=== PATIENT | female | born 1995 ===

== ENCOUNTER 2021-11-02 09:15 | Outpatient (RCR) | payer OTHER, SELFPAY ==
[2021-10-14 10:53] VITALS: BMI 30.1
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
--- NOTE | 2021-10-14 14:56 | PC.NURSE ---
Emailed patient a copy their safety plan.
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
--- NOTE | 2021-10-18 08:23 | PC.NURSE ---
Case opened in treatment team
--- NOTE | 2021-10-18 14:56 | P.PNPSP_ITS ---
Subjective Subjective Date of Service: 10/18/21 Reason For Visit: recurrent depressive d/o,ROSSI Interim History: Describes mood as ?doing okay ?. Finding groups helpful. No SI/HI/SIB, no safety concerns. Continues with some dysphoric, anxious symptoms. Feels current medication regimen is adequate, not interested in medication changes at this time. Medication Compliance: Yes Side effects from medications: No Attending Groups: Yes Review of Systems Acute medical concerns: No Medical Review of Systems: unchanged Review of Systems Review of Systems Yes all other systems are reviewed and are negative Constitutional: Reports no additional constitutional complaints Mental Status Exam Mental Status Exam Narrative: NAD. No perceptual disturbances noted, no tics or tremors, no SI/HI/SIB reported. Patient Appearance: Well Grooomed and Appropriate Patient Orientation: Person, Place, Time and Situation Level of Consciousness: Appropriate Patient Behavior: Appropriate and Poor Eye Contact (closed eyes at times, or looking down) Mood Description: Appropriate, Depressed and Anxious Affect Description: Depressed and Anxious Patient Cognition Impaired: No Ability to Follow Directions: Good Speech Pattern: Clear Memory Description: Intact Hallucinations: None Delusions: Not Present Thought Process: Intact Thought Content: positive for Intact Depressive Symptoms: Increased Anxiety, Difficulty Sleeping, Loss of Int. in Activity, Feelings of Guilt, Unhappiness and Increased Fatigue Judgement: Fair Diagnostics Vital Signs (24Hr): BMI result Body Mass Index 30.1 Assessment & Plan Assessment & Plan (1) Major depressive disorder, recurrent, moderate: Status: Acute Code(s): F33.1 - Major depressive disorder, recurrent, moderate Assessment and Plan: Describes mood as ?doing okay ?. Finding groups helpful. States that they are ?learning a lot ?from them. No SI/HI/SIB reported, no safety concerns. Reports that they continue with some dysphoric, anxious symptoms. However, they do not feel any symptoms warrant further medication at this time. They want to continue learning new healthy coping skills from groups, and having opportunity to practice. (2) Generalized anxiety disorder: Status: Acute Code(s): F41.1 - Generalized anxiety disorder Plan 1. Continue with current [facility] plan of care. 2. Continue with current medication regimen as prescribed by outpatient provider. 3. Follow-up as per protocol. Patient educated on: diagnosis, medication risk/benefits and therapeutic strategies Informed Consent: understands Reason for contiued partial hosp. stay Substantial Risk for: harm to self, inability to function, rapid decompensation and med/psych decompensation Certification I certify that partial hospital treatment is medically necessary due to the symptoms and problems resulting from the patient's mental illness and the failure to treat the patient at the partial hospital level of care would likely result in the patient requiring inpatient psychiatric care which could not be prevented at a less intensive level of care. I spent minutes with the patient and/or on the patient floor today, greater than?50% of which was spent counseling/coordinating care. Discharge Plan Discharge Attending provider: Brayan Jesus Medications: No Action sertraline 100 mg Tablet 100 mg PO DAILY 0RF Rx Instructions: Take with 50 mg tab. lorazepam 0.5 mg Tablet 0.5 mg PO BEDTIME PRN (Reason: Sleep) 0RF Label Comments: Last took about a week ago. hydroxyzine HCl 10 mg Tablet 10 mg PO DAILY PRN (Reason: Anxiety) 0RF sertraline 50 mg Tablet 50 mg PO DAILY 0RF Telehealth Telehealth Location of provider rendering services: practice address Location of patient: address on file Patient Identification confirmed using: Name, : Yes Telehealth method: video Patient verbally consented to treatment: Yes Patient verbally consented to billing insurance company: Yes Patient informed of any privacy concerns related to visit: Yes Minutes spent on Phone/Video with Pt.: 15
--- NOTE | 2021-10-26 13:11 | HO.PHPPROGNO ---
Subjective Subjective Date of Service: 10/26/21 Reason For Visit: recurrent depressive d/o,ROSSI Medical Problems Affecting Mental Status: No Interim History: Describes mood as ?good?. Some depressive symptoms, although improving. No concerns with medications. No SI/HI reported, no safety concerns. Finding groups helpful. Medication Compliance: Yes Side effects from medications: No Attending Groups: Yes Review of Systems Acute medical concerns: No Medical Review of Systems: unchanged Review of Systems Review of Systems Yes all other systems are reviewed and are negative Constitutional: Reports no additional constitutional complaints Mental Status Exam Mental Status Exam Narrative: NAD. no SI/HI/SIB, no safety concerns at this time. Patient Appearance: Well Grooomed and Appropriate Patient Orientation: Person, Place, Time and Situation Level of Consciousness: Appropriate Patient Behavior: Appropriate and Poor Eye Contact (closed eyes at times, or looking down (related to autism)) Mood Description: Appropriate and Depressed Affect Description: Appropriate and Depressed (Appears improving.) Patient Cognition Impaired: No Ability to Follow Directions: Good Speech Pattern: Clear Memory Description: Intact Hallucinations: None Delusions: Not Present Thought Process: Intact Thought Content: positive for Intact Depressive Symptoms: Increased Anxiety, Loss of Int. in Activity, Feelings of Guilt and Unhappiness Judgement: Fair Diagnostics Vital Signs (24Hr): BMI result Body Mass Index 30.1 Assessment & Plan Assessment & Plan (1) Major depressive disorder, recurrent, moderate: Status: Acute Code(s): F33.1 - Major depressive disorder, recurrent, moderate Assessment and Plan: Describes mood as ?good?. Some depressive symptoms, although improving. States they find current medication regimen working. States they would like to eventually lower dose of sertraline, but understands that they would need to be stable for some time prior to doing this. No SI/HI reported, no safety concerns. Finding groups helpful. (2) Generalized anxiety disorder: Status: Acute Code(s): F41.1 - Generalized anxiety disorder Assessment and Plan: Reports groups are beneficial in learning and practicing new coping skills to help manage symptoms. Plan 1. Continue with current [facility] plan of care. 2. Continue current medication regimen as prescribed by outpatient provider. 3. Follow-up as per protocol. Patient educated on: diagnosis, medication risk/benefits and therapeutic strategies Informed Consent: understands Reason for contiued partial hosp. stay Substantial Risk for: harm to self, inability to function, rapid decompensation and med/psych decompensation Certification I certify that partial hospital treatment is medically necessary due to the symptoms and problems resulting from the patient's mental illness and the failure to treat the patient at the partial hospital level of care would likely result in the patient requiring inpatient psychiatric care which could not be prevented at a less intensive level of care. I spent minutes with the patient and/or on the patient floor today, greater than?50% of which was spent counseling/coordinating care. Discharge Plan Discharge Attending provider: Brayan Jesus Medications: No Action sertraline 100 mg Tablet 100 mg PO DAILY Rx Instructions: Take with 50 mg tab. lorazepam 0.5 mg Tablet 0.5 mg PO BEDTIME PRN (Reason: Sleep) Label Comments: Last took about a week ago. hydroxyzine HCl 10 mg Tablet 10 mg PO DAILY PRN (Reason: Anxiety) sertraline 50 mg Tablet 50 mg PO DAILY Telehealth Telehealth Location of provider rendering services: practice address Patient Identification confirmed using: Name, : Yes Telehealth method: video Patient verbally consented to treatment: Yes Patient verbally consented to billing insurance company: Yes Patient informed of any privacy concerns related to visit: Yes Minutes spent on Phone/Video with Pt.: 15
--- NOTE | 2021-11-02 13:10 | PC.NURSE ---
Patient scheduled to discharge from [facility] today. She is feeling ready for discharge. Feels she has learned much from the program. No safety issues. Reviewed patient medications with patient. Patient reports taking medications as prescribed.
--- NOTE | 2021-11-02 13:17 | HO.PHPPROGNO ---
Subjective Subjective Date of Service: 11/02/21 Reason For Visit: recurrent depressive d/o,ROSSI Medical Problems Affecting Mental Status: No Interim History: Describes mood as ?I am okay ?. Reports feeling stable, ready for discharge. Request refill for p.r.n. lorazepam, only has 2 tabs last. No SI/HI, no safety concerns. Medication Compliance: Yes Side effects from medications: No Attending Groups: Yes Review of Systems Acute medical concerns: No Medical Review of Systems: unchanged Review of Systems Review of Systems Yes all other systems are reviewed and are negative Constitutional: Reports no additional constitutional complaints Mental Status Exam Mental Status Exam Narrative: NAD. no SI/HI/SIB, no safety concerns at this time. Patient Appearance: Well Grooomed and Appropriate Patient Orientation: Person, Place, Time and Situation Level of Consciousness: Appropriate Patient Behavior: Appropriate Mood Description: Appropriate Affect Description: Appropriate Patient Cognition Impaired: No Ability to Follow Directions: Excellent Speech Pattern: Clear Memory Description: Intact Hallucinations: None Delusions: Not Present Thought Process: Intact Thought Content: positive for Intact Depressive Symptoms: Increased Anxiety Judgement: Good Diagnostics Vital Signs (24Hr): BMI result Body Mass Index 30.1 Assessment & Plan Assessment & Plan (1) Generalized anxiety disorder: Status: Acute Code(s): F41.1 - Generalized anxiety disorder Assessment and Plan: Patient reports symptoms of anxiety and depression have greatly improved since beginning [facility]. No SI/HI, no safety concerns at this time. Patient requesting refill of p.r.n. lorazepam 0.5, 10 tabs, which they utilize at night at times for sleep. Next appointment with outpatient psychiatric provider is in approximately 1 month. Patient reports they feel ready for discharge, and has felt very supported in this program, as well as learned and had opportunity to practice new coping skills. (2) Major depressive disorder, recurrent, moderate: Status: Acute Code(s): F33.1 - Major depressive disorder, recurrent, moderate Plan 1. Patient appears stable for discharge from [facility] at this time. 2. Patient will follow-up with outpatient providers going forward. 3. Script for lorazepam 0.5mg prn at bedtime for sleep, total 10 tabs, sent to pharmacy. Patient educated on: diagnosis, medication risk/benefits and therapeutic strategies Informed Consent: understands Reason for contiued partial hosp. stay Substantial Risk for: stable for discharge Certification I certify that partial hospital treatment is medically necessary due to the symptoms and problems resulting from the patient's mental illness and the failure to treat the patient at the partial hospital level of care would likely result in the patient requiring inpatient psychiatric care which could not be prevented at a less intensive level of care. I spent minutes with the patient and/or on the patient floor today, greater than?50% of which was spent counseling/coordinating care. Discharge Plan Discharge Attending provider: Brayan Jesus Medications: New lorazepam 0.5 mg tablet 0.5 mg PO BEDTIME PRN (Reason: sleep) Qty: 10 0RF Discontinued lorazepam 0.5 mg Tablet 0.5 mg PO BEDTIME PRN (Reason: Sleep) Label Comments: Last took about a week ago. No Action sertraline 100 mg Tablet 100 mg PO DAILY Rx Instructions: Take with 50 mg tab. hydroxyzine HCl 10 mg Tablet 10 mg PO DAILY PRN (Reason: Anxiety) sertraline 50 mg Tablet 50 mg PO DAILY Stand Alone Forms: Patient Portal Discharge page Telehealth Telehealth Location of provider rendering services: practice address Location of patient: address on file Patient Identification confirmed using: Name, : Yes Telehealth method: video Patient verbally consented to treatment: Yes Patient verbally consented to billing insurance company: Yes Patient informed of any privacy concerns related to visit: Yes Minutes spent on Phone/Video with Pt.: 15
== END 2021-11-02 23:59 | disposition home or self-care (01) ==
LOC: HO.PHPA 09:15
PROVIDERS: Visit Provider Psychiatry & Neurology Psychiatry
DX: F33.1 Major depressive disorder, recurrent, moderate (principal); F41.1 Generalized anxiety disorder; F84.0 Autistic disorder
CPT/HCPCS: 90791; 90853